=== PATIENT | female | born 1990 | race Caucasian/White ===

== ENCOUNTER 2020-06-17 13:34 | Emergency (ER) | payer SELFPAY ==
[2020-06-17 13:43] VITALS: BP 117/68; PULSE 69; RESP 18; TEMP 36.3; O2SAT 100; BMI 25.0
--- NOTE | 2020-06-17 13:46 | XR_ITS ---
EXAMINATION: XR FOOT, LEFT CLINICAL INFORMATION: Status post fall with foot pain COMPARISON: None TECHNIQUE: AP, lateral, and oblique views of the left foot. FINDINGS: There is a tiny fracture involving the lateral corner of the proximal phalanx of the first toe. No other fractures are seen. XR/XR foot LT min 3V IMPRESSION: Small fracture of the lateral corner of the base of the proximal phalanx first toe.
[2020-06-17] MEDS: Ibuprofen 800 MG TABLET PO (13:55)
--- NOTE | 2020-06-17 15:01 | ED_ITS ---
HPI - Extremity Injury (Lower) General Chief Complaint: Extremity Injury, Lower Stated Complaint: foot pain, fall ?fx Time Seen by Provider: 06/17/20 13:46 Source: patient Mode of arrival: ambulatory Limitations: no limitations History of Present Illness HPI Narrative: States fell onto her left foot having pain just proximal to the great toe. No other injury. Occurred at home. MD complaint: foot injury Onset (ago): minute(s) Injury: Left: foot Type of Injury: blunt Place: home Severity: moderate Severity scale (1-10): 4 Exacerbating factors: weight bearing, movement and palpation Context: fall and direct blow Treatments prior to arrival: cold therapy Related Data Allergies Allergy/AdvReac Type Severity Reaction Status Date / Time DAIRY PRODUCTS Allergy Unknown DIARRHEA Uncoded 03/09/20 19:34 Review of Systems Review of Systems: Constitutional: No Weight loss, No Fever, No Chills, No Nig ht Sweats, No Fatigue, No Malaise ENT/Mouth: No Hearing loss, No Ear Pain, No Nasal Congestion, No Sinus Pain, No Hoarseness, No sore throat, No Rhinorrhea, No Swallowing Difficulty Eyes: No Vision Changes Cardiovascular: No Chest Pain Respiratory: No Cough a Gastrointestinal: No abdominal Pain Genitourinary: no irregular bleeding Musculoskeletal: No joint pain, No Myalgias, No Joint Swelling Skin: No Skin Lesions, No rash Neuro: No Dizziness, No Headache Psych: No Social Issues Heme/Lymph: No Bruising, No Bleeding,No Lymphadenopathy Endocrine: No Polyuria, No Polydipsia, No Temperature Intolerance Yes all other systems are reviewed and are negative [facility] Social History Social History Advance Directives: No Advance Directives Information Provided: No Physical Exam Vital Signs: Vital Signs: Last Vital Signs Temp 97.3 F 06/17/20 13:43 Pulse 69 06/17/20 13:43 Resp 18 06/17/20 13:43 BP 117/68 06/17/20 13:43 Pulse Ox 100 06/17/20 13:43 Body Mass Index 25.0 Reviewed Const: General: cooperative and healthy appearing; No acute distress or intox icated appearing Nutritional Appearance: average body habitus Orientation/consciousness: patient oriented x3 HENMT: Head: Yes normal to inspection Ears: hearing grossly normal bilaterally Eyes: General: appearance normal, both eyes and all related structures Visual Brannon: normal visual brannon by confrontation Neck: Neck: Yes normal visual inspection and No positive Brudzinski's sign Thyroid: Thyroid normal Chest: Chest palpation & inspection: normal inspection of the chest Resp: Effort & Inspection: normal respiratory effort Cardio: Rhythm: regular rhythm Heart sounds: S1 normal heart sound present and S2 normal heart sound present Skin: General skin exam: no rashes or lesions noted Neuro: General: patient oriented x3 Extrem: General: Yes normal to inspection Ankle/foot/toe images: 1. Temp palpation/slice ecchymosis. Cap refill less than 2 seconds. Neurovascular intact. Aside from the ecchymosis no overt deformity. Course Course Course Narrative: Placed in ortho boot, home care, follow-up instructions provided. MDM - Extremity Injury (Lower) Medical Records Attestation: I reviewed the patient's medical records. Lab Data Attestation: I reviewed the patient's lab results. Imaging Data Left foot x-ray: Radiologist's impression: [address] [address] XRay Report Signed Patient: Taty GhotraMR#: [id number] : 1990Acct:[id number] Age/Sex: 29 / FADM Date: 06/17/20 Loc: HO.ED Attending Dr: Ordering Physician: Tk Philip NP Date of Service: 06/17/20 Procedure(s): XR foot LT min 3V Accession Number(s): [id number] cc: Tk Philip NP~ EXAMINATION: XR FOOT, LEFT CLINICAL INFORMATION: Status post fall with foot pain COMPARISON: None TECHNIQUE: AP, lateral, and oblique views of the left foot. FINDINGS: There is a tiny fracture involving the lateral corner of the proximal phalanx of the first toe. No other fractures are seen. XR/XR foot LT min 3V IMPRESSION: Small fracture of the lateral corner of the base of the proximal phalanx first toe. Dictated By:STEPHY PIERCE MD Signed By:<Electronically signed by STEPHY PIERCE MD in OV>06/17/20 1357 DD/ 1346 TD/TT: Hand Icer: SS Discharge Plan Discharge Clinical Impression: Fracture of toe of left foot Qualifiers: Encounter type: initial encounter Toe: great toe Fracture type: closed Phalanx: proximal Fracture alignment: nondisplaced Qualified Code(s): S92.415A - Nondisplaced fracture of proximal phalanx of left great toe, initial encounter for closed fracture Patient Disposition: Home, Self-Care Instructions: Toe Fracture (ED), Walking Boot (ED) Additional Instructions: Ice, elevate, use the boot for at least the next 14 days Follow-up with Orthopedics as discussed Ibuprofen or Tylenol per label instructions for pain discomfort Return if any concerns or worsening symptoms Thank you Referrals: Davion Gamboa MD [Physician] - 1 week Interventions: ED Discharge Assessment Last Done: 06/17/20 15:08 Discharge Date/Time: 06/17/20 15:08
== END 2020-06-17 15:08 | disposition home or self-care (01) ==
PROVIDERS: Emergency Provider Emergency Medicine Emergency Medical Services; PCP Internal Medicine
DX: S92.415A Nondisplaced fracture of proximal phalanx of left great toe, initial encounter for closed fracture (principal); W22.8XXA Striking against or struck by other objects, initial encounter; Y93.9 Activity, unspecified; Y92.019 Unspecified place in single-family (private) house as the place of occurrence of the external cause; Y99.9 Unspecified external cause status
CPT/HCPCS: 73630; 99283

== ENCOUNTER 2020-06-28 12:19 | Outpatient (REF) | payer SELFPAY ==
--- NOTE | 2020-06-28 14:40 | XR_ITS ---
EXAMINATION: XR FOOT, LEFT CLINICAL INFORMATION: Pain COMPARISON: 06/17/2020 TECHNIQUE: AP, lateral, and oblique views of the left foot. FINDINGS: Again seen is an avulsion fracture involving the lateral base of the first proximal phalanx at the metacarpophalangeal joint. Progressive ill-definition of the fracture margins and endosteal bridging indicative of callus formation. No new fractures. No dislocation. Soft tissues unremarkable. XR/XR foot LT min 3V IMPRESSION: Healing minimally displaced avulsion fracture involving the lateral base of the first proximal phalanx.
== END 2020-06-28 12:20 | disposition home or self-care (01) ==
LOC: HO.HOSX 12:19
PROVIDERS: Visit Provider Physician Assistant
DX: M79.672 Pain in left foot (principal)
CPT/HCPCS: 73630

== ENCOUNTER 2021-06-03 15:56 | Emergency (ER) | payer OTHER, SELFPAY ==
--- NOTE | ~2021-06-03 | US_ITS ---
EXAMINATION: US PELVIS COMPLETE US PELVIS OVARIAN DOPPLER CLINICAL INFORMATION: Right-sided pelvic pain. Question torsion. COMPARISON: CT abdomen/pelvis done earlier the same day. TECHNIQUE: Ultrasound of the pelvis is performed using both transabdominal and transvaginal transducers along with Doppler. Transvaginal imaging is performed due to inadequate visualization transabdominally. FINDINGS: UTERUS: Status post hysterectomy. ADNEXA: The left ovary is surgically absent. The right ovary is sonographically unremarkable and measures 2.6 x 2.2 x 2.1 cm for a volume of 6.6 mL. There is normal Doppler detectable arterial and venous flow within the right ovary. No pelvic mass, fluid collection, or free fluid. US/US pelvic ovarian doppler IMPRESSION: 1. Sonographically unremarkable right ovary with normal Doppler detectable vascular flow. 2. Surgically absent uterus and left ovary. 3. No pelvic mass, fluid collection, or free fluid.
--- NOTE | ~2021-06-03 | US_ITS ---
EXAMINATION: US PELVIS COMPLETE US PELVIS OVARIAN DOPPLER CLINICAL INFORMATION: Right-sided pelvic pain. Question torsion. COMPARISON: CT abdomen/pelvis done earlier the same day. TECHNIQUE: Ultrasound of the pelvis is performed using both transabdominal and transvaginal transducers along with Doppler. Transvaginal imaging is performed due to inadequate visualization transabdominally. FINDINGS: UTERUS: Status post hysterectomy. ADNEXA: The left ovary is surgically absent. The right ovary is sonographically unremarkable and measures 2.6 x 2.2 x 2.1 cm for a volume of 6.6 mL. There is normal Doppler detectable arterial and venous flow within the right ovary. No pelvic mass, fluid collection, or free fluid. US/US pelvic complete IMPRESSION: 1. Sonographically unremarkable right ovary with normal Doppler detectable vascular flow. 2. Surgically absent uterus and left ovary. 3. No pelvic mass, fluid collection, or free fluid.
--- NOTE | ~2021-06-03 | CT_ITS ---
EXAMINATION: CT ABDOMEN AND PELVIS WITH CONTRAST CLINICAL INFORMATION: Right lower quadrant pain, right flank pain. Evaluate for appendicitis, renal stones. COMPARISON: CT abdomen/pelvis dated 03/17/2018. TECHNIQUE: Multidetector volumetric images were obtained from the superior aspect of the liver through the pubic symphysis following administration 85 mL of Omnipaque 350 intravenous contrast. Sagittal and coronal reformatted images were obtained on the technologist's workstation. Oral contrast: No This CT examination was performed using dose optimization techniques as appropriate, variously including the following: *Automated exposure control *Adjustment of mA and/or kV according to patient size (this includes techniques or standardized protocols for targeted exams where dose is matched to indication/reason for exam; i.e. extremities or head) *Use of iterative reconstruction technique DLP: 576 mGy-cm FINDINGS: LUNG BASES: The visualized lung bases are unremarkable. LIVER, GALLBLADDER, AND BILIARY TREE: The liver is normal in size, shape, and attenuation. No focal hepatic lesion or biliary ductal dilatation is present. The gallbladder is unremarkable with no evidence of radiopaque gallstones, gallbladder wall thickening, or obvious pericholecystic inflammatory changes. PANCREAS: Unremarkable. SPLEEN: Unremarkable. ADRENAL GLANDS: Unremarkable. KIDNEYS AND URETERS: The kidneys are normal in size, shape, and attenuation. Right mid/upper pole 0.2 cm renal stone located approximately 8.1 cm from the posterior axillary line. No additional renal or ureteral stone. No hydronephrosis or hydroureter. BLADDER: Unremarkable. GASTROINTESTINAL TRACT: No bowel wall thickening or associated inflammatory change. No small or large bowel obstruction. Unremarkable appendix. PERITONEAL CAVITY: No intra-abdominal free air or free fluid. No intra-abdominal mass or organized fluid collection/abscess formation. ABDOMINAL WALL: No significant hernia is appreciated. LYMPH NODES: Normal. VASCULAR: Unremarkable. PELVIC VISCERA: The uterus is surgically absent. OSSEOUS STRUCTURES: Unremarkable. CT/CT abdomen pelvis w con IMPRESSION: 1. Nonobstructing right mid/upper pole 0.2 cm renal stone. No additional renal or ureteral stone. No hydronephrosis or hydroureter. Unremarkable urinary bladder. 2. No bowel wall thickening or inflammatory change. No small or large bowel obstruction. Unremarkable appendix. 3. No intra-abdominal mass, lymphadenopathy, or ascites. Fleischner guidelines were followed.
[2021-06-03 16:12] VITALS: BP 111/74; PULSE 74; RESP 18; TEMP 36.4; O2SAT 99; BMI 25.0
[2021-06-03 16:32] LABS: Appearance Urine TURBID; Color Urine YELLOW; Glucose Urine UA NEG (NEG); Leukocyte Esterase Urine NEG (NEG); Nitrite Urine NEG (NEG); Specific Gravity - Urine 1.015 (1.005-1.025); Urine Blood NEG (NEG); Urine Ketones NEG (NEG); Urine Protein NEG (NEG-TRACE)
--- NOTE | 2021-06-03 18:02 | ED_ITS ---
HPI - Female Genitourinary General Chief complaint: Urogenital-Female Stated complaint: ?kidney stone rt side Time Seen by Provider: 06/03/21 18:47 Source: patient Mode of arrival: ambulatory Limitations: no limitations History of Present Illness HPI Narrative: 30-year-old female with past medical history of partial hysterectomy and breasts removal presents to ED for right lower quadrant pain and right flank pain the past 3 days with some vomiting. Patient denies any vaginal discharge, vaginal lesions, dysuria, or hematuria. Patient denies any recent trauma. Patient states no dysuria or hematuria. Related Data Home Medications Medication Instructions Recorded Confirmed azelastine 137 mcg (0.1 %) nasal 1 spray INTRANASAL BID 10/03/20 spray aerosol escitalopram oxalate 20 mg tablet 20 mg PO DAILY 10/03/20 lorazepam 1 mg tablet 1 mg PO 10/03/20 norethindrone acetate 5 mg tablet 5 mg PO DAILY 10/03/20 prednisone 20 mg tablet 20 mg PO DAILY 10/03/20 Previous Rx's Medication Instructions Recorded amoxicillin 875 mg-potassium 1 tab PO BID 10 Days #20 tab 10/03/20 clavulanate 125 mg tablet prednisone 20 mg tablet 20 mg PO DAILY 9 Days #18 tab 10/03/20 ketorolac 10 mg tablet 10 mg PO QID PRN 5 Days #20 tab 06/03/21 ondansetron HCl 4 mg tablet 4 mg PO Q6H PRN 2 Days #8 tab 06/03/21 (Zofran) Allergies Allergy/AdvReac Type Severity Reaction Status Date / Time bupropion [From Wellbutrin] Allergy Unknown unknown Verified 10/03/20 11:42 acetaminophen [From Percocet] AdvReac Mild nausea and Verified 10/03/20 11:42 vomiting oxycodone [From Percocet] AdvReac Mild nausea and Verified 10/03/20 11:42 vomiting DAIRY PRODUCTS Allergy Unknown DIARRHEA Uncoded 10/03/20 11:42 Review of Systems Review of Systems: Yes all other systems are reviewed and are negative Constitutional: Constitutional: Reports as per HPI and Reports no additional constitutional complaints Eyes: Eyes: Reports as per HPI and Reports no additional eye complaints ENT: Reports system reviewed and no additional complaints, except as do cumented and Reports as per HPI Cardiovascular: Cardiovascular: Reports as per HPI and Reports no additional cardiovascular complaints Respiratory: Respiratory: Reports as per HPI and Reports no additional respiratory complaints Gastrointestinal: Gastrointestinal: Reports as per HPI, Reports no additional gastrointestinal complaints and Reports abdominal pain (RLQ pain) Comments: Right flank pain Musculoskeletal: Musculoskeletal: Reports no additional musculoskeletal complaints and Reports as per HPI Neurologic: Reports system reviewed and no additional complaints, except as documented and Reports as per HPI Psychiatric: Psychiatric: Reports no additional psychiatric complaints and Reports as per HPI [facility] Social History Social History (Updated 06/28/20 @ 14:48 by Bettye Ennis PA-C) Alcohol intake: current Alcohol intake frequency: a few times a week Advance Directives: No Advance Directives Information Provided: No Physical Exam Vital Signs: Vital Signs: Last Vital Signs Temp 98.2 F 06/03/21 20:03 Pulse 66 06/03/21 20:03 Resp 18 06/03/21 20:03 BP 107/70 06/03/21 20:03 Pulse Ox 99 06/03/21 20:03 BMI result Body Mass Index 25.0 Const: General: cooperative, healthy appearing, comfortable, no acute distress, well developed, alert, awake and Physically active Orientation/consciousness: patient oriented x3 HENMT: Head: Yes normal to inspection, Yes No palpable skull fracture present, Yes normocephalic, Yes atraumatic and No abrasion Eyes: General: appearance normal, both eyes and all related structures Neck: Neck: Yes normal visual inspection, Yes full ROM, Yes no lymphadenopathy, Yes no meningeal signs, Yes trachea midline, Yes supple, No anterior neck swelling and No tender Chest: Chest palpation & inspection: normal inspection of the chest and normal palpation of entire chest wall Resp: Effort & Inspection: normal respiratory effort and able to speak in complete sentences Auscultation: clear to auscultation bilaterally Cardio: Jugular venous distension: no JVD Heart sounds: S1 normal heart sound present and S2 normal heart sound present GI: Inspection: Yes normal to inspection and No abdominal wall ecchymosis Palpation (GI): Tenderness to palpation present (GI) in the RLQ and with rebound tenderness, no guarding and not rigid : Other: Patient refused pelvic exam General: Yes CVA tenderness (Right) Back/Spine/Pelvis: Back: CVA tenderness (Right) and No back tenderness Skin: General skin exam: no rashes or lesions noted and elasticity normal Neuro: General: patient oriented x3, gait normal, no meningeal signs and CN's II-XI intact bilaterally Cranial nerves: Yes CN's II-XII intact bilaterally Extrem: General: Yes normal to inspection and Yes full ROM Psych: Appearance: grossly normal, well kempt and not disheveled Course Course Course Narrative: Patient's urine is clean negative for blood, UTI or . Will do CAT to maje sure there is no appendicitis. Also will do pelvic ultrasound due to patient stating history of left ovary removal due to it being led to partial hysterectomy. Uterus removed. Patient states she only have right ovary remained Reevaluation(s) Reevaluation #1: UA negative for UTI. Patient labs are normal and negative elevated white blood cell count. Abdominal CT scan does not show any medical/surgical etiology. Pelvic ultrasound does not show ovarian torsion or ovarian abscess. Patient will be discharged with pain medication follow-up with primary care provider. Patient preferred to have pelvic exam by her PCP/OBGYN and will do STI evaluation with OBGYN if needed. Patient refused pelvic exam or STI testing. Patient has kidney stone in superior pole which was not causing right flank pain. Negative for any stone in ureter or bladder. Patient given copy of labs and imaging for follow-up with primary care provider Time: 20:51 MDM - Female Genitourinary MDM Narrative Medical decision making narrative: Flank pain. Abdominal pain Lab Data Result diagrams: 06/03/21 18:28 06/03/21 18:28 Labs: Lab Results 06/03/21 06/03/21 06/03/21 Range/Units 16:25 16:25 18:28 WBC 6.5 (4.8-10.8) X10*3/uL RBC 3.89 L (4.20-5.50) X10*6/uL Hgb 12.7 (12.0-16.0) g/dl Hct 36.9 L (37.0-47.0) % MCV 94.9 (80.0-98.0) fL MCH 32.6 (27.0-33.0) pg MCHC 34.4 (31.0-35.0) g/dl RDW 11.5 (11.0-16.0) % Plt Count 321 (160-400) X10*3/uL MPV 9.2 L (9.4-12.3) fL Immature Gran % (Auto) 0.2 (0.0-0.4) % Neut % (Auto) 60.9 (45-73) % Lymph % (Auto) 33.1 (20-40) % [place] % (Auto) 4.9 (2-11) % Eos % (Auto) 0.6 (0-4) % Baso % (Auto) 0.3 (0-2) % Lymph # (Auto) 2.1 (1.2-4.9) X10*3/uL [place] # (Auto) 0.3 (0.1-1.2) X10*3/uL Eos # (Auto) 0.0 (0.0-0.4) X10*3/uL Baso # (Auto) 0.0 (0.0-0.2) X10*3/uL Abs Immat Gran (auto) 0.01 (0.00-0.03) X10*3/uL Absolute Neuts (auto) 3.9 (2.0-8.3) x10*3/uL Absolute Nucleated RBC 0.000 (0.0-0.012) X10*3/uL Nucleated RBC % (auto) 0.0 (0.0-0.2) /100WBC PT (9.9-13.0) SEC INR (0.9-1.1) APTT (24.1-38.0) SEC Sodium (135-145) mmol/L Potassium (3.3-5.1) mmol/L Chloride (96-108) mmol/L Carbon Dioxide (22-29) mmol/L Anion Gap (12-20) BUN (9-16) mg/dL Creatinine (0.5-1.4) mg/dL Estim Creat Clear Calc Estimated GFR Random Glucose (60-115) mg/dL Calcium (8.4-10.2) mg/dL Total Bilirubin (0.0-1.0) mg/dL AST (5-31) U/L ALT (0-31) U/L Alkaline Phosphatase (39-117) U/L Total Protein (6.5-8.0) g/dL Albumin (3.5-5.0) g/dL Beta HCG, Quant mIU/mL Urine Color YELLOW Urine Appearance TURBID Urine pH 8.0 (5.0-8.0) Ur Specific [place] 1.015 (1.005-1.025) Urine Protein NEG (NEG-TRACE) MG/DL Urine Glucose (UA) NEG (NEG) MG/DL Urine Ketones NEG (NEG) MG/DL Urine Blood NEG (NEG) Urine Nitrite NEG (NEG) Ur Leukocyte Esterase NEG (NEG) Urine Test NEGATIVE (NEGATIVE) 06/03/21 06/03/21 Range/Units 18:28 18:28 WBC (4.8-10.8) X10*3/uL RBC (4.20-5.50) X10*6/uL Hgb (12.0-16.0) g/dl Hct (37.0-47.0) % MCV (80.0-98.0) fL MCH (27.0-33.0) pg MCHC (31.0-35.0) g/dl RDW (11.0-16.0) % Plt Count (160-400) X10*3/uL MPV (9.4-12.3) fL Immature Gran % (Auto) (0.0-0.4) % Neut % (Auto) (45-73) % Lymph % (Auto) (20-40) % [place] % (Auto) (2-11) % Eos % (Auto) (0-4) % Baso % (Auto) (0-2) % Lymph # (Auto) (1.2-4.9) X10*3/uL [place] # (Auto) (0.1-1.2) X10*3/uL Eos # (Auto) (0.0-0.4) X10*3/uL Baso # (Auto) (0.0-0.2) X10*3/uL Abs Immat Gran (auto) (0.00-0.03) X10*3/uL Absolute Neuts (auto) (2.0-8.3) x10*3/uL Absolute Nucleated RBC (0.0-0.012) X10*3/uL Nucleated RBC % (auto) (0.0-0.2) /100WBC PT 12.5 (9.9-13.0) SEC INR 1.1 (0.9-1.1) APTT 34.1 (24.1-38.0) SEC Sodium 140 (135-145) mmol/L Potassium 3.9 (3.3-5.1) mmol/L Chloride 108 (96-108) mmol/L Carbon Dioxide 25 (22-29) mmol/L Anion Gap 11 L (12-20) BUN 9 (9-16) mg/dL Creatinine 0.76 (0.5-1.4) mg/dL Estim Creat Clear Calc 105.2 Estimated GFR > 60 Random Glucose 113 (60-115) mg/dL Calcium 9.5 (8.4-10.2) mg/dL Total Bilirubin 0.2 (0.0-1.0) mg/dL AST 16 (5-31) U/L ALT 11 (0-31) U/L Alkaline Phosphatase 50 (39-117) U/L Total Protein 6.8 (6.5-8.0) g/dL Albumin 3.9 (3.5-5.0) g/dL Beta HCG, Quant < 2 mIU/mL Urine Color Urine Appearance Urine pH (5.0-8.0) Ur Specific [place] (1.005-1.025) Urine Protein (NEG-TRACE) MG/DL Urine Glucose (UA) (NEG) MG/DL Urine Ketones (NEG) MG/DL Urine Blood (NEG) Urine Nitrite (NEG) Ur Leukocyte Esterase (NEG) Urine Test (NEGATIVE) Discharge Plan Discharge Clinical Impression: Flank pain, Abdominal pain Patient Disposition: Home, Self-Care Instructions: Abdominal Pain (ED), Flank Pain (ED) Additional Instructions: Your blood work and urine came back normal. CT scan of abdomen came back negative for any medical/surgical emergent etiology. Pelvic ultrasound came back negative for ovarian torsion/abscess. Please follow-up with primary care provider. Return to the ED for any worsening abdominal pain, flank pain, fever, chills, intractable nausea, vomiting, dysuria, hematuria, vaginal lesions, vaginal discharge, or any other concerning symptoms. Prescriptions: New ketorolac 10 mg tablet 10 mg PO QID PRN (Reason: pain) 5 Days Qty: 20 RF: 0 ondansetron HCl [Zofran] 4 mg tablet 4 mg PO Q6H PRN (Reason: nausea) 2 Days Qty: 8 RF: 0 No Action escitalopram oxalate 20 mg tablet 20 mg PO DAILY RF: 0 lorazepam 1 mg tablet 1 mg PO RF: 0 norethindrone acetate 5 mg tablet 5 mg PO DAILY RF: 0 azelastine 137 mcg (0.1 %) aerosol,spray 1 spray intranasal BID RF: 0 prednisone 20 mg tablet 20 mg PO DAILY RF: 0 prednisone 20 mg tablet 20 mg PO DAILY 9 Days Qty: 18 RF: 0 amoxicillin-pot clavulanate 875-125 mg tablet 1 tab PO BID 10 Days Qty: 20 RF: 0 Stand Alone Forms: Work/School Release Interventions: ED Discharge Assessment Last Done: 06/03/21 21:29 Discharge Date/Time: 06/03/21 21:30 Print Language: Ukrainian
[2021-06-03 18:30] LABS: UPreg QC Valid YES; Urine Pregnancy NEGATIVE (NEGATIVE)
[2021-06-03] MEDS: 0.9 % Sodium Chloride 1,000 ML 999 ML IV (18:31)
[2021-06-03 18:36] LABS: Basophils Percent Auto 0.3 % (0-2); Eosinophils Percent Auto 0.6 % (0-4); Hematocrit 36.9 % (37.0-47.0); Hemoglobin 12.7 g/dl (12.0-16.0); Imm Gran Abs Auto 0.01 X10*3/uL (0.00-0.03); Imm Gran Pct Auto 0.2 % (0.0-0.4); Lymphocytes Absolute Auto 2.1 X10*3/uL (1.2-4.9); Lymphocytes Percent Auto 33.1 % (20-40); MANUAL DIFF FLAG NO; Mean Corpuscular HGB Conc 34.4 g/dl (31.0-35.0); Mean Corpuscular Hemoglobin 32.6 pg (27.0-33.0); Mean Corpuscular Volume 94.9 fL (80.0-98.0); Mean Platelet Volume 9.2 fL (9.4-12.3); Monocytes Absolute Auto 0.3 X10*3/uL (0.1-1.2); Monocytes Percent Auto 4.9 % (2-11); Neutrophils Absolute Auto 3.9 x10*3/uL (2.0-8.3); Neutrophils Percent Auto 60.9 % (45-73); Platelet Count 321 X10*3/uL (160-400); Red Blood Count 3.89 X10*6/uL (4.20-5.50); Red Cell Distribution Width 11.5 % (11.0-16.0); White Blood Count 6.5 X10*3/uL (4.8-10.8)
[2021-06-03 18:42] LABS: INTERNATIONAL NORM RATIO 1.1 (0.9-1.1); Prothrombin Time 12.5 SEC (9.9-13.0)
[2021-06-03 18:44] LABS: Partial Thromboplastin Time 34.1 SEC (24.1-38.0)
[2021-06-03 18:52] LABS: Alanine Aminotransferase 11 U/L (0-31); Albumin Level 3.9 g/dL (3.5-5.0); Alkaline Phosphatase 50 U/L (39-117); Anion Gap 11 (12-20); Aspartate Amino Transferase 16 U/L (5-31); Bilirubin Total 0.2 mg/dL (0.0-1.0); Blood Urea Nitrogen 9 mg/dL (9-16); Calcium 9.5 mg/dL (8.4-10.2); Carbon Dioxide 25 mmol/L (22-29); Chloride 108 mmol/L (96-108); Creatinine Clr Calc Pharmacy 105.2; Estimated Glomerular Filt Rate > 60; Glucose Random 113 mg/dL (60-115); Potassium 3.9 mmol/L (3.3-5.1); Sodium 140 mmol/L (135-145); Total Protein 6.8 g/dL (6.5-8.0)
[2021-06-03 18:58] LABS: HCG Quantitative < 2 mIU/mL
[2021-06-03] MEDS: iohexoL 350 MG/ML 100 ML INFUS..BTL IV (19:09)
[2021-06-03] MEDS: ondansetron HCL 4 MG/2 ML VIAL IVPUSH (20:01)
[2021-06-03] MEDS: Ketorolac Tromethamine 30 MG/ML VIAL IVPUSH (20:01)
[2021-06-03 20:03] VITALS: BP 107/70; PULSE 66; RESP 18; TEMP 36.8; O2SAT 99
[2021-06-03] MEDS: traMADoL HCL 50 MG TABLET PO (21:17)
== END 2021-06-03 21:30 | disposition home or self-care (01) ==
PROVIDERS: Physician Assistant; Emergency Provider Internal Medicine
DX: R10.9 Unspecified abdominal pain (principal)
CPT/HCPCS: 36415; 74177; 76856; 80053; 81003; 81025; 84702; 85025; 85610; 85730; 93975; 96361; 96374; 96375; 99284; J1885; J2405; Q9967